=== PATIENT | female | born 1955 | race Caucasian/White ===

== ENCOUNTER 2018-12-07 22:09 | Inpatient (IN) | payer BC | END 2018-12-09 12:17 | disposition home or self-care (01) | LOC: JERBED 12-08 00:42 → JER 22:09 → J5S 12-08 02:13 ==

== ENCOUNTER 2019-02-01 14:19 | Emergency (ER) | payer BC ==
[2019-02-01 14:31] VITALS: BP 133/70; PULSE 95; TEMP 98; BMI 26.6
--- NOTE | 2019-02-01 14:55 | PDOC ---
History of Present Illness - General Chief Complaint: Injury Stated Complaint: RT PINKY INJURY Time Seen by Provider: 02/01/19 14:40 - History of Present Illness Initial Comments: 02/01/19 15:39 HPI: 63-year-old female presented to the emergency room with a laceration to her right hand fifth digit nailbed. She said she had cut it with a knife in the kitchen. Bleeding is not controlled was patient was taken to the back room where I can take an exam. Chief Compliant: Laceration Pain location: Right hand fifth digit Duration: Just prior to coming in Modifying factors: Quality: Radiating: Severity: Time: PMH: Kidney stones which she is having lithotripsy on Saturday FH: Pt has not recently traveled outside the country in the last 30 days. Pt has not been in contact with people who have traveled out of the country, in contact with people who have been ill with fever, n, v, d. 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 sexual history: PSH: Kidney stones Home med use noted on JUN Allergies: Morphine Immunizations: Last tetanus was in 2014 Past History - Past Medical History Allergies/Adverse Reactions: Allergies Allergy/AdvReac Type Severity Reaction Status Date / Time morphine AdvReac Mild GI UPSET Verified 02/01/19 14:37 Home Medications: Ambulatory Orders Metoprolol Tartrate 25 mg PO DAILY 12/07/18 metFORMIN HCL [Metformin HCl] 500 mg PO DAILY 12/07/18 COPD: No Diabetes: Yes (BORDERLINE) HTN: Yes Hypercholesterolemia: Yes Kidney Stones: Yes (1990) - Psycho Social/Smoking Cessation Hx Smoking Status: Yes Smoking History: Unknown if ever smoked Have you smoked in the past 12 months: No Number of Cigarettes Smoked Daily: 0 Information on smoking cessation initiated: No 'Breaking Loose' booklet given: 05/03/12 Hx Alcohol Use: No Drug/Substance Use Hx: No Substance Use Type: Alcohol Hx Substance Use Treatment: No Review of Systems - Review of Systems Able to Perform ROS?: Yes Comments:: 02/01/19 15:41 General statement: Laceration Hematology: neg history of bleeding/blood thinners Skin: Neg for lesions, rash, bruising. HEENT: Neg symptoms Respiratory: Neg SOB or difficulty in breathing Cardiac: Neg chest pain GI: Neg pain, n/v : Neg problems on voiding MS: Neg for joint pain/stiffness, no edema, right hand fifth digit distal nailbed bleeding Neuro: Neg for LOC, weakness, Endocrine: Neg for excess thirst/hunger, cold/heat intolerance, excess sweating Allergies: Neg for allergies *Physical Exam - Vital Signs Last Vital Signs Temp Pulse Resp BP Pulse Ox 98 F 95 H 16 133/70 100 02/01/19 14:29 02/01/19 14:29 02/01/19 14:29 02/01/19 14:29 02/01/19 14:29 - Physical Exam Comments: 02/01/19 15:42 General Appearance: This well appearing 63-year-old female V/S: hemodynamically stable, afebrile Skin: WNL of pt's skin color, no signs of pallor, mottling, cyanosis bleeding from the right hand fifth digit Head:symmetrical Eyes: EOM's intact, PERRLA Ears: denies pain Nose: patent Throat: lips, teeth, gums, tongue, buccal mucos pink and moist Lungs: Chest symmetry equal. Cap refill <3 seconds. Lung sounds clear Cardiac: PMI at R 4MCL space, pos S1 and S2, regular rate. Abdomen: Soft, round, nontender : Not observed Muscularskeletal: Gait steady, ambulated in to ER, no edema +PMS Neuro: AAOx3, cognitively intact, speech clear and appropriate. Medical Decision Making - Medical Decision Making 02/01/19 15:42 Patient initially seen and examined upon her arrival due to bleedings of the right hand fifth digit. Nailbed had been removed however the cuticle remained in place in order to contain the cuticle and allowing the nailbed to remain open. But a large margin of the actual nail was removed by the knife and it is bleeding. Area has been cleaned. Surgicel applied until controlled. Direct pressure was applied until controlled. splint placed and secure. Discharge - Discharge Information Problems reviewed: Yes Clinical Impression/Diagnosis: Laceration Condition: Good Disposition: HOME - Admission No - Follow up/Referral - Patient Discharge Instructions Patient Printed Discharge Instructions: DI for Laceration Repair Additional Instructions: Discharge instructions 1. Please follow up with your primary physician within the next few days and explain that you have been seen here in the Emergency Room. 2. If you experience any worsening of symptoms, please return to the ER Keep your hand clean and dry and elevated. Keep dressing in place. Leave it on for the next 2 to 3 days. Change it daily. During the day and then take it off at night after 2 to 3 days. Do not pick at the hemostatic agent and it will slough off eventually. The rebleeds or becomes infected or swelling or redness to return back to the ER. Leave the splint in place to avoid banging it. 3. Rest 4. Drink plenty of water - Post Discharge Activity Work/Back to School Note: Back to Work
== END 2019-02-01 15:30 | disposition home or self-care (01) ==
LOC: JERFT 14:19
PROC: 2W3JX1Z Immobilization of Right Finger using Splint (ICD-10-PCS; principal; 2019-02-01)
PROC: 0HQFXZZ Repair Right Hand Skin, External Approach (ICD-10-PCS; 2019-02-01)
DX: S61.316A Laceration without foreign body of right little finger with damage to nail, initial encounter (principal); W26.0XXA Contact with knife, initial encounter; Y93.G1 Activity, food preparation and clean up; Y92.010 Kitchen of single-family (private) house as the place of occurrence of the external cause; Y99.8 Other external cause status; I10 Essential (primary) hypertension; E78.00 Pure hypercholesterolemia, unspecified; E11.9 Type 2 diabetes mellitus without complications; Z79.84 Long term (current) use of oral hypoglycemic drugs; Z87.442 Personal history of urinary calculi; Z88.5 Allergy status to narcotic agent
CPT/HCPCS: 99281-25

== ENCOUNTER 2019-02-03 06:00 | Day surgery (SDC) | payer BC ==
[2019-02-03] MEDS ORDERED: MIDAZOLAM HCL 2 MG/2 ML SINGLE DOSE VIAL ONE ×2 (07:39)
[2019-02-03] MEDS ORDERED: PROPOFOL 20 ML ONE (07:39)
--- NOTE | 2019-02-03 07:40 | HP ---
History & Physical Update - History History: No Change - Physical Physical: No Change - Assessment Assessment: No Change - Plan Plan: No Change
--- NOTE | 2019-02-03 07:42 | OP ---
Operative Note - Note: Operative Date: 02/03/19 Pre-Operative Diagnosis: R renal calculi Operation: ESWL R Findings: radiopaque R renal calculi x 3 Post-Operative Diagnosis: Same as Pre-op Surgeon: Samuel Velásquez Anesthesiologist/FINE PATCHER: Brayan Farias Anesthesia: Fractional Estimated Blood Loss (mls): 0 Operative Report Dictated: Yes
[2019-02-03] MEDS ORDERED: LIDOCAINE HCL 1%, 10 MG/ML (20ML VIAL) ONE (08:02)
[2019-02-03] MEDS ORDERED: KETOROLAC TROMETHAMINE 30 MG/1 ML VIAL ONE (08:12)
[2019-02-03 09:18] VITALS: TEMP 97.6
[2019-02-03 10:15] VITALS: BP 107/69; PULSE 54
--- NOTE | 2019-02-03 11:10 | OP ---
DATE OF OPERATION: 02/03/2019 PREOPERATIVE DIAGNOSIS: Right renal calculi. PREOPERATIVE DIAGNOSIS: Right renal calculi. PROCEDURE: Extracorporeal shock-wave lithotripsy, right side. SURGEON: Samuel Pichardo MD MEDICAL LABORATORY TECHNICAL OFFICER: None. ANESTHESIA: IV sedation. ANESTHESIOLOGIST: Brayan Farias MD SPECIMENS: None. CULTURES: None. DRAINS: None. ESTIMATED BLOOD LOSS: None. COMPLICATIONS: None. DESCRIPTION OF PROCEDURE: Patient was brought into the operating room, placed on the operating room table in the supine position. After the administration of intravenous sedation, patient was positioned over the treatment head, and under fluoroscopy guidance, cluster of 3 right renal calculi were identified, targeted, and delivered 2500 shocks at maximum kilovoltage with excellent fragmentation. She tolerated the procedure well, transferred to the recovery room in stable condition. SAMUEL PICHARDO M.D. [id number]
== END 2019-02-03 09:35 | disposition home or self-care (01) ==
LOC: JASU-SURG 06:00
PROVIDERS: ATTEND Urology
PROC: 0TF3XZZ Fragmentation in Right Kidney Pelvis, External Approach (ICD-10-PCS; principal; 2019-02-03 07:30)
DX: N20.0 Calculus of kidney (principal)
CPT/HCPCS: 82962

== ENCOUNTER 2019-05-12 06:02 | Day surgery (SDC) | payer BC ==
[2019-05-11 12:56] VITALS: BMI 30.7
[2019-05-12 06:27] VITALS: TEMP 97.8
[2019-05-12] MEDS ORDERED: MIDAZOLAM HCL 2 MG/2 ML SINGLE DOSE VIAL ONE ×2 (07:11→07:43)
[2019-05-12] MEDS ORDERED: PROPOFOL 20 ML ONE (07:11)
[2019-05-12] MEDS ORDERED: DEXAMETHASONE SOD PHOSPHATE 4 MG/1 ML VIAL ONE (07:21)
--- NOTE | 2019-05-12 07:42 | OP ---
Operative Note - Note: Operative Date: 05/12/19 Pre-Operative Diagnosis: R renal calculus Operation: ESWL R Findings: R renal calculus Post-Operative Diagnosis: Same as Pre-op Surgeon: Samuel Velásquez Anesthesiologist/SPRINKLING TRUCK DRIVER: Patrice Prieto Anesthesia: Fractional Estimated Blood Loss (mls): 0 Operative Report Dictated: Yes
[2019-05-12] MEDS ORDERED: KETAMINE HCL 200 MG/20 ML VIAL ONE (07:45)
--- NOTE | 2019-05-12 08:23 | OP ---
DATE OF OPERATION: 05/12/2019 PREOPERATIVE DIAGNOSIS: Right renal calculi. POSTOPERATIVE DIAGNOSIS: Right renal calculi. PROCEDURE PERFORMED: Extracorporeal shock wave lithotripsy of right renal calculi. SURGEON: Samuel Pichardo M.D. IT COMPLIANCE ANALYST: None. ANESTHESIA: IV sedation. SPECIMENS: None. CULTURES: None. DRAINS: None. ESTIMATED BLOOD LOSS: None. COMPLICATIONS: None. DESCRIPTION OF PROCEDURE: The patient was brought into the operating room and placed on the operating table in the supine position. After the administration of intravenous sedation, the patient was positioned over the treatment head. Under fluoroscopic and ultrasound guidance, 2 right lower pole renal calculi of 1 cm in size each - which were radiopaque - were identified, targeted and delivered 2500 shocks at maximum kilovolts, with partial fragmentation. Also present was a right double J stent in good position. She tolerated the procedure well and was transferred to the recovery room in stable condition. SAMUEL PICHARDO M.D. [id number]
[2019-05-12 09:39] VITALS: BP 118/67; PULSE 66
[2019-05-12] MEDS ORDERED: oxyCODONE HCL 5 MG TABLET PO PRN ×2 (10:17)
[2019-05-12] MEDS ORDERED: ONDANSETRON 4 MG/2 ML VIAL IVPUSH PRN (10:17)
[2019-05-12] MEDS ORDERED: ACETAMINOPHEN 325 MG TABLET (FP) PO PRN (10:17)
[2019-05-12] MEDS ORDERED: LACTATED RINGERS SOLUTION 1,000 ML IV SCH (10:30)
== END 2019-05-12 09:35 | disposition home or self-care (01) ==
LOC: JASU-SURG 06:02
PROVIDERS: ATTEND Urology
PROC: 0TF3XZZ Fragmentation in Right Kidney Pelvis, External Approach (ICD-10-PCS; principal; 2019-05-12 07:30)
DX: N20.0 Calculus of kidney (principal); I10 Essential (primary) hypertension; E11.9 Type 2 diabetes mellitus without complications; Z79.84 Long term (current) use of oral hypoglycemic drugs
CPT/HCPCS: 82962

== ENCOUNTER 2020-01-19 05:20 | Day surgery (SDC) | payer BC ==
--- OUTSIDE RECORDS SUMMARY | 2020-01-19 05:24 | XMS ---
:1955 Author Organization [facility] Support Name Relationship Address Phone KATHY SMITH [employer] Unavailable [address] [place] [address] YOBE Unavailable [address] [place] [address] LEOLA MAGALLANES [address] [place] [place] [address] Re-disclosure Warning The records that you are about to access may contain information from federally- assisted alcohol or drug abuse programs. If such information is present, then the following federally mandated warning applies: This information has been disclosed to you from records protected by federal confidentiality rules (42 CFR part 2). The federal rules prohibit you from making any further disclosure of this information unless further disclosure is expressly permitted by the written consent of the person to whom it pertains or as otherwise permitted by 42 CFR part 2. A general authorization for the release of medical or other information is NOT sufficient for this purpose. The Federal rules restrict any use of the information to criminally investigate or prosecute any alcohol or drug abuse patient.The records that you are about to access may contain highly sensitive health information, the redisclosure of which is protected by Article 27-F of the [facility] Public Health law. If you continue you may haveaccess to information: Regarding HIV / AIDS; Provided by facilities licensed or operated by the [facility] Office of Mental Health; or Provided by the [facility] Office for People With Developmental Disabilities. If such information is present, then the following [facility] mandated warning applies: This information has been disclosed to you from confidential records which are protected by state law. State law prohibits you from making any further disclosure of this information without the specific written consent of the person to whom it pertains, or as otherwise permitted by law. Any unauthorized further disclosure in violation of state law may result in a fine or fdc sentence or both. A general authorization for the release of medical or other information is NOT sufficient authorization for further disclosure. Insurance Providers Payer name Policy type / Policy ID Covered Covered democrat's Policy Plan Coverage type democrat ID relationship to Scott Information scott [facility] [id number] SP [id number] [facility] [id number] SP [id number] Results ID Date Data Source [id number] 01/14/2020 04:00:00 PM EDT [facility] Name Value Range Interpretation Description Data Sup porting Code Source(s) Document(s ) SARS [facility] coronavirus 2 RNA This lab was ordered by [facility] and reported by [facility]. Procedure
[2020-01-19] MEDS ORDERED: PROPOFOL 20 ML ONE ×2 (07:24)
[2020-01-19] MEDS ORDERED: ROCURONIUM BROMIDE 50 MG/5 ML SYRINGE ONE (07:24)
[2020-01-19] MEDS ORDERED: MIDAZOLAM HCL 2 MG/2 ML SINGLE DOSE VIAL ONE (07:24)
[2020-01-19] MEDS ORDERED: SUCCINYLCHOLINE CHLORIDE 200 MG/10 ML SYRINGE ONE (07:24)
[2020-01-19] MEDS ORDERED: DEXAMETHASONE SOD PHOSPHATE 4 MG/1 ML VIAL ONE (07:26)
[2020-01-19] MEDS ORDERED: KETOROLAC TROMETHAMINE 30 MG/1 ML VIAL ONE (07:26)
--- NOTE | 2020-01-19 07:31 | HP ---
History & Physical Update - History History: No Change - Physical Physical: No Change - Assessment Assessment: No Change - Plan Plan: No Change
--- NOTE | 2020-01-19 07:33 | OP ---
Operative Note - Note: Operative Date: 01/19/20 Pre-Operative Diagnosis: R renal calculi Operation: R ureteroscopic laser lithotripsy and JJ stent change Findings: R renal calculi, bladder calculus, encrusted stent Post-Operative Diagnosis: Same as Pre-op Surgeon: Samuel Velásquez Anesthesiologist/CRUTCHER HELPER: Arthur Neal Anesthesia: General Specimens Removed: R JJ stent, bladder and R renal calculi Estimated Blood Loss (mls): 25 Drains & Tubes with Location: 6 fr 24 cm R JJ stent Operative Report Dictated: Yes
[2020-01-19] MEDS ORDERED: ceFAZolin SODIUM 1 GM VIAL IVPB ONE (08:13)
[2020-01-19] MEDS ORDERED: SODIUM CHLORIDE 0.9% P/F 10 ML VIAL IJ ONE (08:20)
[2020-01-19] MEDS ORDERED: ceFAZolin SODIUM 1 GM VIAL ONE (08:20)
[2020-01-19] MEDS ORDERED: NEOSTIGMINE METHYLSULFATE 0.5 MG/1 ML - 10 ML MDV ONE (08:49)
[2020-01-19] MEDS ORDERED: oxyCODONE HCL 5 MG TABLET PO PRN (09:41)
[2020-01-19] MEDS ORDERED: ONDANSETRON 4 MG/2 ML VIAL IVPUSH PRN (09:41)
[2020-01-19] MEDS ORDERED: LACTATED RINGERS SOLUTION 1,000 ML IV SCH (09:45)
[2020-01-19] MEDS ORDERED: ACETAMINOPHEN INJECTION 100 ML IVPB ONE (10:33)
--- NOTE | 2020-01-19 10:46 | OP ---
DATE OF OPERATION: 01/19/2020 PREOPERATIVE DIAGNOSIS: Right renal calculi. POSTOPERATIVE DIAGNOSIS: Right renal calculi, encrusted double-J stent and bladder stone. PROCEDURE: Cystoscopy, laser lithotripsy of bladder calculus, right ureteroscopic laser lithotripsy and double-J stent change. SURGEON: Samuel Pichardo MD CAFETERIA CASHIER: None. ANESTHESIA: General via endotracheal tube. ANESTHESIOLOGIST: Arthur Neal MD SPECIMENS: Bladder and renal calculi. CULTURES: None. ESTIMATED BLOOD LOSS: 25 mL. COMPLICATIONS: None. PROCEDURE: Patient was brought in the operating room, placed on the operating table in a supine position. After administration of general anesthesia via endotracheal tube, intravenous antibiotics were administered. The patient was placed in the dorsal lithotomy position. Vagina and perineum were prepped and draped in usual sterile manner. A 22-Guinean cystoscope was inserted into the bladder with the obturator in place. The obturator was removed, 30-degree telescope was inserted and cystoscopy was performed. This demonstrated the right double-J stent with encrustations and a large bladder stone on it. Left ureteral orifice was in its normal location with clear efflux. Now the 500-micron laser fiber was inserted and lithotripsy of bladder stone was done and fragments were removed. The right double-J stent was then removed, sent to Pathology as specimen. Now the right ureteral orifice was cannulated with a 0.038 guidewire, advanced to the level of the right renal pelvis under fluoroscopic and direct visual guidance. Under fluoroscopy several renal calculi could be seen. Now the dual-lumen catheter was inserted and a super stiff guidewire was inserted as well. Retrograde pyelogram was done, demonstrated moderate right hydronephrosis. The dual-lumen catheter was removed and the ureteral access sheath was inserted over the guidewire to the level of the right renal pelvis under fluoroscopic guidance. Now the flexible ureteroscope was inserted through the ureteral access sheath into the renal pelvis where several stones were seen in various calyces which were now lased using through 200-micron laser fiber until the stones were in small pieces. Several of these were basketed and removed. The remaining bladder stone fragments were removed. Ureteroscope was removed and the cystoscope back loaded and a 6-Guinean 24-cm right double-J stent was inserted over the guidewire under direct visual and fluoroscopic guidance leaving 1 coil in the renal pelvis and 1 coil in the bladder. The bladder was emptied. Cystoscope removed. The stent was secured to the thigh with a suture and a Tegaderm. She tolerated the procedure well, transferred to recovery in stable condition. SAMUEL PICHARDO M.D. [id number]
[2020-01-19] MEDS ORDERED: ACETAMINOPHEN 1000 MG/100 ML VIAL (NON FORMULARY) IVPB ONE (11:15)
[2020-01-19 13:49] VITALS: BP 131/65; PULSE 62; TEMP 97.4
--- NOTE | 2020-01-20 18:47 | PATH ---
Surgical Pathology Report Patient Name: DA MAGALLANES [facility]. Rec. #: [id number] /Age/Gender: 1955 (Age: 64) / F Account: [id number] Location: [facility] Taken: 01/19/2020 Received: 01/19/2020 Reported: 01/20/2020 Physicians: Samuel Velásquez M.D. Specimen(s) Received A: BLADDER STONE B: KIDNEY STONE Clinical History Calculus of ureter Final Diagnosis A. BLADDER STONES, LASER LITHOTRIPSY: BLADDER CALCULI. MACROSCOPIC DIAGNOSIS. B. KIDNEY STONES, LASER LITHOTRIPSY: RENAL CALCULI. MACROSCOPIC DIAGNOSIS. Electronically Signed Estefany Britton M.D. Gross Description A. Received fresh labeled "bladder stones," are 2 lenz, irregular calculi measuring 0.6 and 0.8 cm in greatest dimension. The specimen is sent for chemical analysis. B. Received fresh labeled "kidney stones," is a 0.3 cm greatest dimension lenz-johnson, irregular calculus which is sent for chemical analysis. /[facility]01/[facility]2020
[2020-01-29 13:56] LABS: CA OXALATE MONOHYDR. 100; WEIGHT 14 mg
[2020-01-29 13:57] LABS: CALCIUM CARBONATE 50; SIZE 7X5 mm; WEIGHT 235 mg
== END 2020-01-19 12:00 | disposition home or self-care (01) ==
LOC: JASU-SURG 05:20
PROVIDERS: ATTEND Urology
PROC: 0TCB8ZZ Extirpation of Matter from Bladder, Via Natural or Artificial Opening Endoscopic (ICD-10-PCS; principal; 2020-01-19 08:00)
PROC: 0TC38ZZ Extirpation of Matter from Right Kidney Pelvis, Via Natural or Artificial Opening Endoscopic (ICD-10-PCS; 2020-01-19 08:00)
PROC: 0TC68ZZ Extirpation of Matter from Right Ureter, Via Natural or Artificial Opening Endoscopic (ICD-10-PCS; 2020-01-19 08:00)
PROC: 0T768DZ Dilation of Right Ureter with Intraluminal Device, Via Natural or Artificial Opening Endoscopic (ICD-10-PCS; 2020-01-19 08:00)
DX: N20.0 Calculus of kidney (principal); N21.0 Calculus in bladder
CPT/HCPCS: 36415; 76000-TC-FY; 82360; 82962; 88300-TC; 94760; J0131

== ENCOUNTER 2021-01-14 09:37 | Emergency (ER) | payer BC ==
[2021-01-14 09:40] VITALS: BMI 31.2
[2021-01-14] MEDS ORDERED: KETOROLAC TROMETHAMINE 30 MG/1 ML VIAL IM ONE ×2 (10:18→10:45)
[2021-01-14] MEDS ORDERED: SODIUM CHLORIDE 1,000 ML IV STA ×2 (10:25→13:04)
[2021-01-14 11:04] LABS: BASO % 0.7 % (0-2.0); EOS % 1.3 % (0-4.5); HEMATOCRIT 38.7 % (32.4-45.2); HEMOGLOBIN 13.2 GM/dL (10.7-15.3); LYMPH % 12.1 % (8-40); MCH 29.7 pg (25.7-33.7); MCHC 34.2 g/dl (32.0-36.0); MEAN CELL VOLUME 86.8 fl (80-96); MEAN PLT VOLUME 8.3 fl (7.5-11.1); MONO % 6.8 % (3.8-10.2); NEUT % 79.1 % (42.8-82.8); PLATELET COUNT 186 10^3/uL (134-434); RBC 4.45 M/mm3 (3.60-5.2); RDW 14.6 % (11.6-15.6); WHITE BLOOD COUNT 8.3 K/mm3 (4.0-10.0)
[2021-01-14 11:10] LABS: EPI CELLS 6 /uL (0-25.1); HYALINE CASTS 1 /uL (0-3.1); PH,URINE 6.5 (5.0-8.0); URINE APPEARANCE CLEAR; URINE BACTERIA 83 /uL (0-1359); URINE BILIRUBIN NEGATIVE (NEGATIVE); URINE COLOR YELLOW; URINE GLUCOSE (UA) NEGATIVE (NEGATIVE); URINE KETONE NEGATIVE (NEGATIVE); URINE LEUK ESTERASE TRACE (NEGATIVE); URINE NITRITE NEGATIVE (NEGATIVE); URINE PROTEIN NEGATIVE (NEGATIVE); URINE RBC 864 /uL (0-23.9); URINE UROBILINOGEN 0.2 mg/dL (0.2-1.0); URINE WBC 21 /uL (0-25.8)
[2021-01-14 11:24] LABS: BLOOD UREA NITROGEN 16.1 mg/dL (7-18); CALCIUM 9.8 mg/dL (8.5-10.1)
[2021-01-14 11:28] LABS: BILIRUBIN,TOTAL 0.6 mg/dL (0.2-1); CREATININE 1.1 mg/dL (0.55-1.3)
[2021-01-14 11:29] LABS: TOT PROT 7.2 g/dl (6.4-8.2)
[2021-01-14] MEDS ORDERED: KETOROLAC TROMETHAMINE 30 MG/1 ML VIAL IVPUSH ONE (12:03)
[2021-01-14] MEDS ORDERED: KETOROLAC TROMETHAMINE 30 MG/1 ML VIAL ONE (12:17)
[2021-01-14] MEDS ORDERED: TAMSULOSIN HCL 0.4 MG CAP PO ONE (15:50)
[2021-01-14] MEDS ORDERED: TAMSULOSIN HCL 0.4 MG CAP ONE (16:06)
[2021-01-14 16:38] VITALS: BP 130/78; PULSE 66; TEMP 97.6
[2021-01-14] MEDS ORDERED: CEFTRIAXONE 1 GM in DEXTROSE 5%-WATER - 100 ML IVPB ONE (18:50)
[2021-01-14] MEDS ORDERED: CEFTRIAXONE 1 GM/50 ML BAG ONE (18:57)
== END 2021-01-14 19:55 ==
LOC: JER 09:37
PROC: 3E03329 Introduction of Other Anti-infective into Peripheral Vein, Percutaneous Approach (ICD-10-PCS; principal; 2021-01-14)
PROC: 3E0333Z Introduction of Anti-inflammatory into Peripheral Vein, Percutaneous Approach (ICD-10-PCS; 2021-01-14)
PROC: 3E0233Z Introduction of Anti-inflammatory into Muscle, Percutaneous Approach (ICD-10-PCS; 2021-01-14)
PROC: 3E0337Z Introduction of Electrolytic and Water Balance Substance into Peripheral Vein, Percutaneous Approach (ICD-10-PCS; 2021-01-14)
DX: N12 Tubulo-interstitial nephritis, not specified as acute or chronic (principal)
CPT/HCPCS: 36415; 74176-TC; 80053; 81003; 85025; 87086; 99285-25

== ENCOUNTER 2021-01-15 12:03 | Emergency (ER) | payer BC ==
[2021-01-15 12:21] VITALS: BP 149/80; PULSE 88; TEMP 97; BMI 31.2
== END 2021-01-15 13:44 | disposition home or self-care (01) ==
LOC: JER 12:03
DX: N23 Unspecified renal colic (principal)
CPT/HCPCS: 99283-25

== ENCOUNTER 2021-01-27 04:21 | Day surgery (SDC) | payer BC ==
[2021-01-26 09:19] VITALS: BMI 30.9
[2021-01-27] MEDS ORDERED: PROPOFOL 20 ML ONE ×2 (16:34)
[2021-01-27] MEDS ORDERED: MIDAZOLAM HCL 2 MG/2 ML SINGLE DOSE VIAL ONE (16:36)
[2021-01-27] MEDS ORDERED: ceFAZolin SODIUM 1 GM VIAL IVPB ONE (16:43)
[2021-01-27] MEDS ORDERED: BUPIVACAINE HCL/PF 0.25% (2.5MG/ML) 10 ML VIAL ONE (17:12)
[2021-01-27] MEDS ORDERED: ONDANSETRON 4 MG/2 ML VIAL IVPUSH PRN (17:42)
[2021-01-27] MEDS ORDERED: oxyCODONE HCL 5 MG TABLET PO PRN (17:42)
[2021-01-27 18:59] VITALS: BP 143/72; PULSE 72; TEMP 98.2
== END 2021-01-27 18:35 | disposition home or self-care (01) ==
LOC: JASU-SURG 04:21
PROVIDERS: ATTEND Urology
PROC: 0T9780Z Drainage of Left Ureter with Drainage Device, Via Natural or Artificial Opening Endoscopic (ICD-10-PCS; principal; 2021-01-27 13:30)
DX: N20.1 Calculus of ureter (principal); I10 Essential (primary) hypertension; E11.9 Type 2 diabetes mellitus without complications; Z79.84 Long term (current) use of oral hypoglycemic drugs
CPT/HCPCS: 82962; 94760

== ENCOUNTER 2022-08-17 04:19 | Day surgery (SDC) | payer OTHER, BC ==
[2022-08-15 15:10] VITALS: BMI 29.2
[2022-08-17] MEDS ORDERED: MIDAZOLAM HCL 2 MG/2 ML SINGLE DOSE VIAL ONE (13:14)
[2022-08-17] MEDS ORDERED: ceFAZolin SODIUM 1 GM VIAL IVPB ONE ×2 (13:15→13:31)
[2022-08-17] MEDS ORDERED: PROPOFOL 20 ML ONE (13:41)
[2022-08-17 15:53] VITALS: PULSE 78
[2022-08-17 16:57] VITALS: BP 164/75; RESP 18; TEMP 97.9
== END 2022-08-17 17:02 | disposition home or self-care (01) ==
LOC: JASU-SURG 04:19
PROVIDERS: ATTEND Urology
PROC: 0TC78ZZ Extirpation of Matter from Left Ureter, Via Natural or Artificial Opening Endoscopic (ICD-10-PCS; principal; 2022-08-17 12:30)
PROC: 0T778DZ Dilation of Left Ureter with Intraluminal Device, Via Natural or Artificial Opening Endoscopic (ICD-10-PCS; 2022-08-17 12:30)
PROC: BT1FYZZ Fluoroscopy of Left Kidney, Ureter and Bladder using Other Contrast (ICD-10-PCS; 2022-08-17 12:30)
DX: N13.2 Hydronephrosis with renal and ureteral calculous obstruction (principal)
CPT/HCPCS: 36415; 76000-TC-FY; 82360; 82962; 88300-TC; 94760; C1758; C2617